=== PATIENT | female | born 1960 | race Caucasian/White ===

== ENCOUNTER → 2016-07-30 | Outpatient (REF) | payer MEDICARE ==
[~2016-07-30] MED LIST: ANTA500T PO; BUPR15TA PO; CIPR500T89 PO; DEPA1TAB3 PO; DEPA500T2 PO; FOLI1TAB2 PO; PROZ40CA PO; THIA100TA PO; TRAM50TA2 PO; TYLE325T5 PO
== END | disposition home or self-care (01) ==
LOC: M LAB REF 10:51
PROVIDERS: ATTEND Physician Assistant
DX: J02.9 Acute pharyngitis, unspecified (principal)

== ENCOUNTER → 2016-08-04 | Outpatient (CLI) | payer MEDICARE ==
[2016-08-04 11:37] LABS: MEAN CORPUSCULAR HEMOGLOBIN 31.7 pg (27.0-33.0); MEAN CORPUSCULAR HGB CONC 33.2 g/dl (32.0-36.5); MEAN CORPUSCULAR VOLUME 95.4 fl (80.0-96.0); RED CELL DISTRIBUTION WIDTH 13.4 % (11.5-14.5); WHITE BLOOD COUNT 7.7 K/mm3 (4.0-10.0)
[2016-08-04 12:41] LABS: ALBUMIN/GLOBULIN RATIO 1.08 (1.00-1.93); ALKALINE PHOSPHATASE 80 U/L (45-117); ALT/SGPT 26 U/L (12-78); ANION GAP 8 MEQ/L (8-16); AST/SGOT 17 U/L (15-37); BILIRUBIN,TOTAL 0.6 MG/DL (0.2-1.0); BLOOD UREA NITROGEN 13 MG/DL (7-18); CALCIUM LEVEL 8.9 MG/DL (8.5-10.1); CARBON DIOXIDE LEVEL 29 MEQ/L (21-32); CHLORIDE LEVEL 94 MEQ/L (98-107); CREATININE FOR GFR 0.76 MG/DL (0.55-1.02); GLOMERULAR FILTRATION RATE > 60.0 (>51); GLUCOSE, FASTING 80 MG/DL (70-105); POTASSIUM SERUM 4.6 MEQ/L (3.5-5.1); SODIUM LEVEL 131 MEQ/L (136-145); TOTAL PROTEIN 7.7 GM/DL (6.4-8.2)
== END | disposition home or self-care (01) ==
LOC: M LAB 11:11
PROVIDERS: ATTEND Physician Assistant
DX: F31.81 Bipolar II disorder (principal)

== ENCOUNTER 2017-07-08 13:49 | Emergency (ER) | payer MEDICARE ==
[2017-07-08] MEDS: LIDOCAINE 1% MDV 20ML VIAL SC (15:15)
[2017-07-08] MEDS: ADACEL/BOOSTRIX VACCINE (DIPHTH/PERTUSS/ACELL/TETANUS)0.5ML SYR (90715) IM (15:37)
[2017-07-08] MEDS: DERMABOND TOPICAL SKIN ADHESIVE TOP (16:20)
== END 2017-07-08 16:24 | disposition home or self-care (01) ==
LOC: M ED 13:49
DX: S61.411A Laceration without foreign body of right hand, initial encounter (principal); W25.XXXA Contact with sharp glass, initial encounter; Y92.009 Unspecified place in unspecified non-institutional (private) residence as the place of occurrence of the external cause; Y93.G1 Activity, food preparation and clean up; Y99.8 Other external cause status; G43.009 Migraine without aura, not intractable, without status migrainosus; M48.00 Spinal stenosis, site unspecified; M54.30 Sciatica, unspecified side; K21.9 Gastro-esophageal reflux disease without esophagitis; F41.9 Anxiety disorder, unspecified; F31.9 Bipolar disorder, unspecified; Z79.899 Other long term (current) drug therapy; Z88.5 Allergy status to narcotic agent; Z88.0 Allergy status to penicillin; Z88.1 Allergy status to other antibiotic agents; Z88.2 Allergy status to sulfonamides; Z87.891 Personal history of nicotine dependence
CPT/HCPCS: 90715

== ENCOUNTER → 2017-09-26 | Outpatient (CLI) | payer MEDICARE ==
[2017-09-26 13:37] LABS: BASO % 0.5 % (0.0-1.0); EOS # 0.1 10^3/uL (0.0-0.50); EOS % 0.9 % (0.0-3.0); HEMATOCRIT 38.1 % (36.0-47.0); HEMOGLOBIN 12.7 g/dl (12.0-16.0); IMMATURE GRANULOCYTE % 0.5 % (0-3.0); LYMPH # 1.5 10^3/uL (1.5-4.5); LYMPH % 22.1 % (24.0-44.0); MEAN CORPUSCULAR HGB CONC 33.3 g/dl (32.0-36.5); MONO # 0.6 10^3/uL (0.0-0.8); MONO % 8.6 % (0.0-5.0); NEUTROPHILS # 4.5 10^3/uL (1.8-7.7); NEUTROPHILS % 67.4 % (36.0-66.0); PLATELET COUNT, AUTOMATED 371 10^3/uL (150-450); RED BLOOD COUNT 3.85 10^6/uL (4.00-5.40); RED CELL DISTRIBUTION WIDTH 12.8 % (11.5-14.5); WHITE BLOOD COUNT 6.7 10^3/uL (4.0-10.0)
[2017-09-26 14:09] LABS: ALBUMIN 3.9 GM/DL (3.2-5.2); ALBUMIN/GLOBULIN RATIO 1.11 (1.00-1.93); ALKALINE PHOSPHATASE 86 U/L (45-117); ALT/SGPT 52 U/L (12-78); ANION GAP 4 MEQ/L (8-16); AST/SGOT 33 U/L (7-37); BILIRUBIN,TOTAL 0.5 MG/DL (0.2-1.0); BLOOD UREA NITROGEN 15 MG/DL (7-18); CALCIUM LEVEL 8.7 MG/DL (8.5-10.1); CARBON DIOXIDE LEVEL 28 MEQ/L (21-32); CHLORIDE LEVEL 102 MEQ/L (98-107); GLOMERULAR FILTRATION RATE > 60.0 (>51); GLUCOSE, FASTING 90 MG/DL (70-100); SODIUM LEVEL 134 MEQ/L (136-145); TOTAL PROTEIN 7.4 GM/DL (6.4-8.2)
[2017-09-26 14:13] LABS: POTASSIUM SERUM 5.2 MEQ/L (3.5-5.1)
== END ==
LOC: M SMT 09:53
DX: F39 Unspecified mood [affective] disorder (principal)
CPT/HCPCS: 84443

== ENCOUNTER 2018-02-13 12:18 | Emergency (ER) | payer MEDICARE ==
[2018-02-13 14:27] LABS: BASO # 0.1 10^3/uL (0.0-0.2); BASO % 0.6 % (0.0-1.0); EOS # 0.2 10^3/uL (0.0-0.50); EOS % 2.3 % (0.0-3.0); HEMATOCRIT 36.6 % (36.0-47.0); HEMOGLOBIN 12.4 g/dl (12.0-15.5); IMMATURE GRANULOCYTE % 0.2 % (0-3.0); LYMPH # 2.3 10^3/uL (1.5-4.5); MEAN CORPUSCULAR HEMOGLOBIN 33.3 pg (27.0-33.0); MEAN CORPUSCULAR HGB CONC 33.9 g/dl (32.0-36.5); MEAN CORPUSCULAR VOLUME 98.4 fl (80.0-96.0); MONO # 0.6 10^3/uL (0.0-0.8); MONO % 6.6 % (0.0-5.0); NEUTROPHILS # 5.3 10^3/uL (1.8-7.7); NEUTROPHILS % 63.3 % (36.0-66.0); PLATELET COUNT, AUTOMATED 353 10^3/uL (150-450); RED BLOOD COUNT 3.72 10^6/uL (4.00-5.40); RED CELL DISTRIBUTION WIDTH 13.2 % (11.5-14.5); WHITE BLOOD COUNT 8.3 10^3/uL (4.0-10.0)
[2018-02-13 14:31] LABS: ANION GAP 6 MEQ/L (8-16); BLOOD UREA NITROGEN 5 MG/DL (7-18); CALCIUM LEVEL 8.6 MG/DL (8.5-10.1); CARBON DIOXIDE LEVEL 29 MEQ/L (21-32); CHLORIDE LEVEL 105 MEQ/L (98-107); CPK CREATINE PHOSPHOKINASE 494 U/L (26-192); CREATININE FOR GFR 0.57 MG/DL (0.55-1.30); ETHYL ALCOHOL (ETHANOL) 0.003 % (0.000-0.010); FREE T4 0.82 NG/DL (0.76-1.46); GLOMERULAR FILTRATION RATE > 60.0 (>51); GLUCOSE, FASTING 88 MG/DL (70-100); MAGNESIUM LEVEL 2.1 MG/DL (1.8-2.4); POTASSIUM SERUM 3.6 MEQ/L (3.5-5.1); SODIUM LEVEL 140 MEQ/L (136-145); TROPONIN I < 0.02 NG/ML (< 0.10)
[2018-02-13 14:37] LABS: CK-MB VALUE MASS 7.6 NG/ML (<3.6); MB/CK RELATIVE INDEX 1.53 (< OR =4)
[2018-02-13] MEDS: NS 500 ML IV (14:38)
[2018-02-13] MEDS: KETOROLAC 30 MG/ML VIAL (J1885) IV (14:38)
[2018-02-14 15:04] LABS: BEDSIDE GLUCOSE 87 MG/DL (70-105)
== END 2018-02-13 16:43 | disposition home or self-care (01) ==
LOC: M ED 12:18
DX: S80.01XA Contusion of right knee, initial encounter (principal); S01.111A Laceration without foreign body of right eyelid and periocular area, initial encounter; M47.812 Spondylosis without myelopathy or radiculopathy, cervical region; W19.XXXA Unspecified fall, initial encounter; Y92.89 Other specified places as the place of occurrence of the external cause; R25.2 Cramp and spasm; M85.861 Other specified disorders of bone density and structure, right lower leg; F31.9 Bipolar disorder, unspecified; M19.90 Unspecified osteoarthritis, unspecified site; M79.7 Fibromyalgia; F17.210 Nicotine dependence, cigarettes, uncomplicated; Z88.5 Allergy status to narcotic agent; Z88.0 Allergy status to penicillin; Z88.2 Allergy status to sulfonamides; Z79.899 Other long term (current) drug therapy
CPT/HCPCS: J1885

== ENCOUNTER 2018-08-13 08:56 | Inpatient (IN) | payer MEDICARE ==
[~2018-08-13] VITALS: Ht 167.6 cm; Wt 78.7 kg
[~2018-08-13 08:56] MED LIST changes: +CIPR-249 PO; -CIPR500T89 PO; +FOLI1TAB11 PO; -FOLI1TAB2 PO; +NAPR-885 PO
[2018-08-13] MEDS ORDERED: NITROGLYCERIN 0.4 MG SUBL TABLET SL PRN (09:15)
[2018-08-13] MEDS ORDERED: ASPIRIN 81 MG CHEW TABLET PO ONE (09:15)
[2018-08-13] MEDS ORDERED: NS 1,000 ML IV ONE (09:15)
[2018-08-13 09:24] LABS: BASO # 0.1 10^3/uL (0.0-0.2); BASO % 0.6 % (0.0-1.0); EOS # 0.1 10^3/uL (0.0-0.50); EOS % 1.3 % (0.0-3.0); HEMATOCRIT 39.9 % (36.0-47.0); HEMOGLOBIN 13.5 g/dl (12.0-15.5); LYMPH % 19.9 % (24.0-44.0); MEAN CORPUSCULAR HEMOGLOBIN 33.8 pg (27.0-33.0); MEAN CORPUSCULAR HGB CONC 33.8 g/dl (32.0-36.5); MONO % 9.9 % (0.0-5.0); NEUTROPHILS # 6.7 10^3/uL (1.8-7.7); NEUTROPHILS % 67.7 % (36.0-66.0); PLATELET COUNT, AUTOMATED 304 10^3/uL (150-450); RED BLOOD COUNT 3.99 10^6/uL (4.00-5.40); WHITE BLOOD COUNT 9.8 10^3/uL (4.0-10.0)
--- NOTE | 2018-08-13 09:24 | REP ---
Portable chest x-ray: Single view. History: Chest pain. Comparison study: October 01, 2014. Findings: EKG monitoring electrodes overlie the chest. The lungs are symmetrically aerated and clear. Heart is not enlarged. The aorta is somewhat tortuous. Pulmonary vasculature is not increased. No significant bony abnormality is seen. Pleural angles are sharp. Impression: No active disease. Electronically Signed by Sherwin Arce MD 08/13/2018 09:16 A
[2018-08-13] MEDS ORDERED: MORPHINE 2 MG/ML 1ML SYRINGE (J2270) IV PRN (09:30)
[2018-08-13 09:35] LABS: INR 0.95; PROTHROMBIN TIME 12.8 SECONDS (12.1-14.4)
[2018-08-13 09:36] LABS: PARTIAL THROMBOPLASTIN TIME 26.9 SECONDS (25.4-37.6)
[2018-08-13] MEDS ORDERED: LORazepam 2 MG/ML VIAL (J2060) IV STA (09:58)
[2018-08-13 10:01] LABS: ALT/SGPT 71 U/L (12-78); BILIRUBIN,DIRECT 0.2 MG/DL (0.0-0.2); BILIRUBIN,TOTAL 0.5 MG/DL (0.2-1.0); BLOOD UREA NITROGEN 9 MG/DL (7-18); CARBON DIOXIDE LEVEL 30 MEQ/L (21-32); CHLORIDE LEVEL 97 MEQ/L (98-107); CPK CREATINE PHOSPHOKINASE 180 U/L (26-192); CREATININE FOR GFR 0.67 MG/DL (0.55-1.30); FREE T4 0.97 NG/DL (0.76-1.46); GLOMERULAR FILTRATION RATE > 60.0 (>51); GLUCOSE, FASTING 104 MG/DL (70-100); LIPASE 67 U/L (73-393); MB/CK RELATIVE INDEX 1.78 (< OR =4); NT-PRO BNP 45 PG/ML (<125); POTASSIUM SERUM 3.2 MEQ/L (3.5-5.1); SODIUM LEVEL 135 MEQ/L (136-145); TOTAL PROTEIN 7.5 GM/DL (6.4-8.2); TROPONIN I < 0.02 NG/ML (< 0.10)
[2018-08-13 10:05] LABS: HCG, SERUM QUALITATIVE NEGATIVE (NEGATIVE)
[2018-08-13 10:08] LABS: ACETAMINOPHEN LEVEL < 2.0 UG/ML (10.0-30.0); ETHYL ALCOHOL (ETHANOL) < 0.003 % (0.000-0.010); SALICYLATE LEVEL 6.9 MG/DL (5.0-30.0); VALPROIC ACID (DEPAKOTE) 31.2 UG/ML (50.0-100.0)
[2018-08-13 10:14] LABS: MAGNESIUM LEVEL 2.4 MG/DL (1.8-2.4)
[2018-08-13] MEDS ORDERED: POTASSIUM CHLORIDE 10 MEQ SR TABLET PO ONE (10:15)
[2018-08-13 15:37] LABS: CPK CREATINE PHOSPHOKINASE 130 U/L (26-192); MB/CK RELATIVE INDEX 2.15 (< OR =4); TROPONIN I < 0.02 NG/ML (< 0.10)
[2018-08-13] MEDS ORDERED: HALOPERIDOL 5 MG/ML VIAL (J1630) As Ordered ONE (15:48)
[2018-08-13] MEDS ORDERED: diphenhydrAMINE INJ 50MG/ML VIAL (J1200) As Ordered ONE (15:48)
[2018-08-13] MEDS ORDERED: LORazepam 2 MG/ML VIAL (J2060) IM ONE (16:00)
[2018-08-13] MEDS ORDERED: diphenhydrAMINE INJ 50MG/ML VIAL (J1200) IM ONE (16:00)
[2018-08-13] MEDS ORDERED: HALOPERIDOL 5 MG/ML VIAL (J1630) IM ONE (16:00)
[2018-08-13] MEDS ORDERED: NEOSPORIN OINT 0.9 GM PKT (FLOOR STOCK) As Ordered ONE (18:28)
--- NOTE | 2018-08-13 20:00 | ECGEPIP ---
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
[2018-08-13 21:06] LABS: AMPHETAMINES LEVEL URINE NEGATIVE (NEGATIVE); BARBITURATES URINE NEGATIVE (NEGATIVE); BENZODIAZEPINES URINE NEGATIVE (NEGATIVE); CANNABINOIDS URINE POSITIVE (NEGATIVE); COCAINE METABOLITE URINE NEGATIVE (NEGATIVE); METHADONE URINE NEGATIVE (NEGATIVE); OPIATES URINE POSITIVE (NEGATIVE); PHENCYCLIDINE URINE NEGATIVE (NEGATIVE)
[2018-08-13] MEDS ORDERED: chlorproMAZINE INJ 50MG/2ML AMP (J3230) IM ONE (23:30)
[2018-08-14] MEDS ORDERED: buPROPion **XL** TABLET 150MG (WELLBUTRIN XL) PO ONE (07:30)
[2018-08-14] MEDS ORDERED: DIVALPROEX 500MG *ER* TAB PO ONE (07:30)
[2018-08-14] MEDS ORDERED: FLUoxetine 20 MG CAP PO ONE (07:30)
[2018-08-14] MEDS ORDERED: ALEV220T26 PO (09:17)
[2018-08-14] MEDS ORDERED: MAALOX 30 ML SUSP *UDC PO PRN (11:15)
[2018-08-14] MEDS ORDERED: MOM 30ML SUSPENSION UDC PO PRN (11:15)
[2018-08-14 12:05] VITALS: BP 145/95
[2018-08-14 18:00] VITALS: BP 136/92
[2018-08-14] MEDS: traZODone 50 MG TAB PO PRN (23:02)
[2018-08-15] MEDS: ACETAMINOPHEN TAB 650MG DOSE (2X325MG) PO PRN ×2 (06:01→15:08)
[2018-08-15 06:34] VITALS: BP 144/84
--- NOTE | 2018-08-15 08:39 | ECGEPIP ---
Stationary ECG Study [facility] - ED Test Date: 2018-08-13 Pat Name: ISIDORO SCOTT Department: Room: - Gender: F Disability Attorney: JERSON : 1960 Requested By: Rhianna Lopez Order Number: [id number] Reading MD: Radha Blakely Measurements Intervals [place] Rate: 87 P: 31 TN: 179 QRS: 0 QRSD: 95 T: 53 QT: 377 QTc: 455 Interpretive Statements SINUS RHYTHM MINIMAL ST DEPRESSION PROLONGED QTC INCREASED RATE 08/13/18 Electronically Signed On 08-15-2018 8:38:38 EST by Radha Blakely
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
--- NOTE | 2018-08-15 10:02 | REP ---
CT Head without contrast HISTORY: Altered mental status COMPARISON: 02/13/2018 There is no intraparenchymal hemorrhage, acute infarct, mass or midline shift. The ventricular system and cortical sulci are dilated consistent with minimal volume loss. There is no extra cerebral collection. There is no fracture. The visualized sinuses are clear. IMPRESSION: Minimal volume loss. Electronically Signed by Navin Gaming MD 08/15/2018 09:53 A
--- NOTE | 2018-08-15 10:30 | REP ---
CT NECK WITH CONTRAST: HISTORY: Neck pain. A small 4 mm left laryngocele is present. The naso-, nica-, and hypopharynx, and subglottic trachea are normal in appearance. The salivary and thyroid glands are normal in size and density. Small lymph nodes, less than 1 cm in size are present in the internal jugular chains, posterior triangles, submandibular and submental areas. Minimal degenerative change is present in the cervical spine. The lung apices are clear. The visualized sinuses are clear. IMPRESSION: 1. Small 4 mm left laryngocele. 2. There is no neck mass or adenopathy. Electronically Signed by Navin Gaming MD 08/15/2018 10:34 A
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
[2018-08-15] MEDS: DIVALPROEX 500MG *ER* TAB PO SCH ×2 (13:16→20:18)
[2018-08-15] MEDS: PALIPERIDONE 3 MG ER TAB (INVEGA) PO SCH ×2 (13:17→20:18)
[2018-08-15 18:00] VITALS: BP 125/83
[2018-08-15] MEDS: traZODone 50 MG TAB PO PRN (20:18)
--- NOTE | 2018-08-15 21:44 | ECGEPIP ---
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
[2018-08-16] MEDS: ACETAMINOPHEN TAB 650MG DOSE (2X325MG) PO PRN ×2 (00:48→13:44)
[2018-08-16 06:23] VITALS: BP 123/70
[2018-08-16 07:04] LABS: HEMATOCRIT 38.5 % (36.0-47.0); HEMOGLOBIN 13.1 g/dl (12.0-15.5); MEAN CORPUSCULAR HEMOGLOBIN 33.2 pg (27.0-33.0); MEAN CORPUSCULAR VOLUME 97.7 fl (80.0-96.0); PLATELET COUNT, AUTOMATED 331 10^3/uL (150-450); RED BLOOD COUNT 3.94 10^6/uL (4.00-5.40); WHITE BLOOD COUNT 6.5 10^3/uL (4.0-10.0)
[2018-08-16 07:36] LABS: ALBUMIN 3.7 GM/DL (3.2-5.2); ALT/SGPT 80 U/L (12-78); BILIRUBIN,TOTAL 0.5 MG/DL (0.2-1.0); BLOOD UREA NITROGEN 10 MG/DL (7-18); CALCIUM LEVEL 9.1 MG/DL (8.5-10.1); CARBON DIOXIDE LEVEL 23 MEQ/L (21-32); CHLORIDE LEVEL 105 MEQ/L (98-107); CREATININE FOR GFR 0.56 MG/DL (0.55-1.30); FREE THYROXINE INDEX 2.6 % (1.3-4.8); GLOMERULAR FILTRATION RATE > 60.0 (>51); GLUCOSE, FASTING 125 MG/DL (70-100); POTASSIUM SERUM 4.4 MEQ/L (3.5-5.1); SODIUM LEVEL 136 MEQ/L (136-145); T UPTAKE 33 % (30-39); THYROXINE (T4) 7.8 UG/DL (4.5-12.0)
[2018-08-16] MEDS: PALIPERIDONE 3 MG ER TAB (INVEGA) PO SCH ×2 (09:31→20:59)
[2018-08-16] MEDS: DIVALPROEX 500MG *ER* TAB PO SCH ×2 (09:31→20:59)
--- NOTE | 2018-08-16 10:36 | MHIPNPDOC ---
[facility] Progress Note Progress Note DATE OF SERVICE: 08/16/18 HISTORY: Patient is a 58 -year-old , female, with no known psych history who presented to ED with complaint of chest pain. Pt during evaluation for CP very paranoid and abrasive to staff stating she was part of a "federal sting" and that she "works for [employer]." When staff attempting to take pt's vitals pt screamed at nurse and stated she was trying to kill her. She also stated 'HIPAA violation b/c the doctors can see them." Per ED when pt was in room alone with door cracked was talking back and forth to self changing voices for different people in full conversation. Attempted to see pt this am who demanding the her nursing assistants teacher be present as a "witness." Pt then stated that no one's doing anything right here and that we're treating her poorly from her experience in the ED to here on [facility] and that she's going to [place] one including myself and take our medical license b/c her family is full of mold changer with a lot of "legal pull in this town." Pt stating that she's smarter than everyone here b/c she has a 2yr degree from a [employer] for biochemistry and that she knows everyone at [place]. She is making multiple legal threats and is unable to participate in interview due to psychosis and grandiose, paranoid delusions. Her insight and judgement are extremely poor. Pt is a poor historian to history gathered from ED reports VITAL SIGNS: See below. NEW TEST RESULTS: See below. CURRENT MEDICATIONS: See below. MENTAL STATUS EXAMINATION: General Appearance: unkempt, appears stated age, hospital scrubs/clothing Build: overweight Demeanor: hostile (verbally making legal threats), mistrustful, preoccupied, guarded Eye Contact: average Activity: agitated, anxious, less hostile (verbally making legal threats) Behavior: uncooperative, resistant, agitated Speech: rapid, pressured, normal volume Mood: anxious, less angry, irritable Mood "I'm going to [place] you all" Affect: inappropriate, labile, anxious, hostile, disorganized Thought Process: tangential, associative, flight of ideas, racing, derailment Thought Content (Delusions): grandiose, bizarre, paranoia, delusions Thought Content (Other): preoccupied, obsessional, guarded, ideas of reference, internal-stimuli, appears paranoid Thought Content (Aggressive): none reported Perception (Hallucinations): auditory (talking to self back and forth changing voices for different people in full conversation) Perception (Other): none reported Cognition (Impairment of): memory, attention/concentration, ability to abstract Cognition(Intelligence Est.): borderline Oriented: Awake, Alert, Oriented times three Insight: poor Judgment: Poor Psychosis: Associations, Abstract Thinking, Psychotic Perceptions DIAGNOSES: bipolar 1 d/o mre rosa with psychosis (per [facility] records) ASSESSMENT:Attempts to see pt today but refused to come to my office as she's on the phone with "the state" telling them that laws are being broken her and she's being held against her will for no reason. She continues to be manic, grandiose, hostile, psychotic, paranoid, and delusional. She is compliant on her medication though so will monitor for improvement in symptoms. MANAGEMENT PLAN: continue current plan. Per [facility] records pt has one daughter and a son 15yrs ago. Has found prozac, effexor, and klonopin beneficial in the past for depression. Depakote beneficial for bipolar d/o Medications: depakote er bid invega 3mg bid ativan 2mg q6hr prn anxiety/agitation zyprexa zydis 5mg q6hr prn anxiety/agitation. TIME SPENT: 30 minutes. Vital Signs Vital Signs Date Time Temp Pulse Resp B/P (MAP) Pulse Ox O2 Delivery O2 Flow Rate FiO2 08/16/18 06:23 97.8 86 16 123/70 (87) 08/15/18 07:51 Room Air 08/14/18 12:05 97 Laboratory Data 24H Labs Laboratory Tests 2 08/16/18 06:44: Nucleated Red Blood Cells % (auto) 0.0, Anion Gap 8, Glomerular Filtration Rate > 60.0, Blood Urea Nitrogen 10, Creatinine 0.56, Sodium Level 136, Potassium Level 4.4#, Chloride Level 105, Carbon Dioxide Level 23, Calcium Level 9.1, Aspartate Amino Transf (AST/SGOT) 62H, Alanine Aminotransferase (ALT/SGPT) 80H, Alkaline Phosphatase 67, Total Bilirubin 0.5, Total Protein 7.0, Albumin 3.7, Albumin/Globulin Ratio 1.12, Thyroid Stimulating Hormone (TSH) 11.300H, Free Thyroxine Index 2.6, Thyroxine (T4) 7.8, Triiodothyronine (T3) Uptake 33 CBC/BMP Laboratory Tests 08/16/18 06:44 Red Blood Count 3.94 L, Mean Corpuscular Volume 97.7 H, Mean Corpuscular Hemoglobin 33.2 H, Mean Corpuscular Hemoglobin Concent 34.0, Red Cell Distribution Width 12.3, Calcium Level 9.1, Aspartate Amino Transf (AST/SGOT) 62 H, Alanine Aminotransferase (ALT/SGPT) 80 H, Alkaline Phosphatase 67, Total Bilirubin 0.5, Total Protein 7.0, Albumin 3.7 Current Medications Current Medications Acetaminophen (Tylenol Tab) 650 mg Q6HP PRN PO HEADACHE or DISCOMFORT Last administered on 08/16/18at 00:48; Start 08/14/18 at 11:15 Al Hydrox/Mg Hydrox/Simethicone (Mylanta) 30 ml Q4HP PRN PO HEARTBURN/INDIGESTION; Start 08/14/18 at 11:15 Divalproex Sodium (Depakote Er) 500 mg BID PO Last administered on 08/16/18at 09:31; Start 08/15/18 at 09:00 Home Med (Med Rec Complete!) ASDIRECTED XX ; Start 08/14/18 at 09:30; Stop 08/14/18 at 09:30; Status DC Lorazepam (Ativan) 1 mg STAT STAT IV Last administered on 08/13/18at 10:03; Start 08/13/18 at 09:58; Stop 08/13/18 at 09:59; Status DC Lorazepam (Ativan) 2 mg Q6HP PRN PO ANXIETY/AGITATION; Start 08/15/18 at 12:15 Magnesium Hydroxide (Milk Of Magnesia) 30 ml DAILYPRN PRN PO CONSTIPATION; Start 08/14/18 at 11:15 Morphine Sulfate (Morphine Sulfate Inj) 2 mg Q30M PRN IV MODERATE PAIN (PS 5-7) Last administered on 08/13/18at 09:25; Start 08/13/18 at 09:30 Nitroglycerin (Nitrostat (1/ 150)) 0.4 mg Q5MP PRN SL CHEST PAIN; Start 08/13/18 at 09:15 Olanzapine (ZyPREXA) 5 mg Q6HP PRN PO ANXIETY/AGITATION; Start 08/14/18 at 11:30 Paliperidone (Invega) 3 mg QAM PO Last administered on 08/16/18at 09:31; Start 08/15/18 at 09:00 Paliperidone (Invega) 3 mg QHS PO Last administered on 08/15/18at 20:18; Start 08/15/18 at 21:00 Trazodone HCl (Desyrel) 50 mg QHSP PRN PO INSOMNIA Last administered on 08/15/18at 20:18; Start 08/14/18 at 11:15 Allergies Coded Allergies: Penicillins (Unverified Allergy, Severe, ANAPHYLACTIC REACTION, 02/23/14) Sulfa Antibiotics (Unverified Adverse Reaction, Intermediate, TINNITUS, 02/23/14) Codeine (Unverified Adverse Reaction, Unknown, VOMIT, 04/11/16) SHERMAN YU DO Aug 16, 2018 10:36 am
[2018-08-16] MEDS: NICOTINE 21MG/24HR 1 EA TRANSDERMAL TD PRN (14:49)
[2018-08-16 18:00] VITALS: BP 107/79
[2018-08-16] MEDS: traZODone 50 MG TAB PO PRN (20:59)
[2018-08-17] MEDS: ACETAMINOPHEN TAB 650MG DOSE (2X325MG) PO PRN ×2 (03:41→18:03)
[2018-08-17 06:30] VITALS: BP 120/83
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
[2018-08-17] MEDS: DIVALPROEX 500MG *ER* TAB PO SCH ×2 (08:57→21:01)
[2018-08-17] MEDS: PALIPERIDONE 3 MG ER TAB (INVEGA) PO SCH ×2 (08:58→21:01)
[2018-08-17] MEDS: LEVOTHYROXINE 25MCG TABLET (0.025MG) PO SCH (08:58)
[2018-08-17 09:16] LABS: ALBUMIN 3.8 GM/DL (3.2-5.2); ALT/SGPT 75 U/L (12-78); BILIRUBIN,TOTAL 0.5 MG/DL (0.2-1.0); BLOOD UREA NITROGEN 10 MG/DL (7-18); CALCIUM LEVEL 9.1 MG/DL (8.5-10.1); CARBON DIOXIDE LEVEL 27 MEQ/L (21-32); CHLORIDE LEVEL 102 MEQ/L (98-107); CREATININE FOR GFR 0.68 MG/DL (0.55-1.30); GLOMERULAR FILTRATION RATE > 60.0 (>51); GLUCOSE, FASTING 134 MG/DL (70-100); POTASSIUM SERUM 4.4 MEQ/L (3.5-5.1); SODIUM LEVEL 135 MEQ/L (136-145)
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
[2018-08-17] MEDS: NICOTINE 21MG/24HR 1 EA TRANSDERMAL TD PRN (14:49)
[2018-08-17 18:00] VITALS: BP 112/75
[2018-08-17] MEDS: traZODone 50 MG TAB PO PRN (21:01)
[2018-08-17] MEDS: CEPACOL LOZENGE PO PRN (21:03)
[2018-08-18] MEDS: ACETAMINOPHEN TAB 650MG DOSE (2X325MG) PO PRN (02:43)
[2018-08-18] MEDS: LEVOTHYROXINE 25MCG TABLET (0.025MG) PO SCH (05:57)
[2018-08-18 06:00] VITALS: BP 135/86
[2018-08-18] MEDS: DIVALPROEX 500MG *ER* TAB PO SCH ×2 (08:49→20:23)
[2018-08-18] MEDS: PALIPERIDONE 3 MG ER TAB (INVEGA) PO SCH ×2 (08:49→20:22)
[2018-08-18] MEDS: CEPACOL LOZENGE PO PRN ×2 (08:50→14:40)
[2018-08-18] MEDS: NICOTINE 21MG/24HR 1 EA TRANSDERMAL TD PRN (14:42)
[2018-08-18 18:00] VITALS: BP 113/59
[2018-08-18] MEDS: traZODone 50 MG TAB PO PRN (20:22)
[2018-08-19 06:00] VITALS: BP 114/66
[2018-08-19] MEDS: LEVOTHYROXINE 25MCG TABLET (0.025MG) PO SCH (06:36)
[2018-08-19] MEDS: PALIPERIDONE 3 MG ER TAB (INVEGA) PO SCH ×2 (08:59→20:34)
[2018-08-19] MEDS: DIVALPROEX 500MG *ER* TAB PO SCH ×2 (08:59→20:34)
[2018-08-19] MEDS: CEPACOL LOZENGE PO PRN ×2 (15:50→21:33)
[2018-08-19] MEDS: NICOTINE 21MG/24HR 1 EA TRANSDERMAL TD PRN (15:51)
--- NOTE | 2018-08-19 17:09 | MHIPN ---
DATE: 08/18/2018 CHIEF COMPLAINT: Says feels good. SUBJECTIVE: Is seen for followup in the presence of staff. Says feels good and is puzzled as to why she is here. Says was admitted through the emergency room. Says is doing well and that her moods are good. Acknowledges sleep is somewhat diminished. 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 MENTAL STATUS EXAMINATION: Neat, cooperative. There is no agitation. Speech is somewhat overly productive. Affect is broad. Denies any thoughts of harming herself or anyone else. Appears somewhat grandiose. Does not appear internally preoccupied. She is alert and oriented. Judgment and insight are questionable. ASSESSMENT: 1. Bipolar disorder, current episode manic with psychotic features. PLAN: Continue current care, observations. She is on paliperidone 6 mg daily in divided doses. Depakote 1000 mg and these may need to be titrated upwards. Further recommendations will be made depending on the clinical picture. VITAL SIGNS: These are as listed. Blood pressure 135/86, pulse 92, temperature 97.8.
[2018-08-19 18:00] VITALS: BP 102/68
[2018-08-19] MEDS: traZODone 50 MG TAB PO PRN (20:35)
[2018-08-20] MEDS: LEVOTHYROXINE 25MCG TABLET (0.025MG) PO SCH (05:51)
[2018-08-20 06:21] VITALS: BP 134/65
--- NOTE | 2018-08-20 08:33 | REP ---
RIGHT UPPER QUADRANT ULTRASOUND: Real-time sonographic evaluation of right upper quadrant performed. Gallbladder demonstrates no evidence of intraluminal sludge or calculi, wall thickening, or pericholecystic fluid. There is no intrahepatic or extrahepatic biliary dilatation, common bile duct measuring 3 mm. Liver and pancreas demonstrate homogeneous echotexture with no gross mass. Right kidney demonstrates no hydronephrosis with normal size 9.6 cm in length. IMPRESSION: Negative right upper quadrant ultrasound. Electronically Signed by Freddie Zepeda MD 08/20/2018 10:35 P
--- NOTE | 2018-08-20 09:06 | MHIPNPDOC ---
[facility] Progress Note Progress Note DATE OF SERVICE: 08/20/18 HISTORY: Patient is a 58 -year-old , female, with no known psych history who presented to ED with complaint of chest pain. Pt during evaluation for CP very paranoid and abrasive to staff stating she was part of a "federal sting" and that she "works for [employer]." When staff attempting to take pt's vitals pt screamed at nurse and stated she was trying to kill her. She also stated 'HIPAA violation b/c the doctors can see them." Per ED when pt was in room alone with door cracked was talking back and forth to self changing voices for different people in full conversation. 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 She is making multiple legal threats and is unable to participate in interview due to psychosis and grandiose, paranoid delusions. Her insight and judgement are extremely poor. Pt is a poor historian to history gathered from ED reports VITAL SIGNS: See below. NEW TEST RESULTS: See below. CURRENT MEDICATIONS: See below. MENTAL STATUS EXAMINATION: General Appearance: unkempt, appears stated age, hospital scrubs/clothing Build: overweight Demeanor: more calm and cooperative, preoccupied by grandiose delusions, guarded Eye Contact: average Activity: more calm and cooperative Behavior: cooperative, pleasant Speech: improved rapid, pressured, normal volume Mood: no longer anxious and hostile. She is less manic Mood "I had a good weekend." Affect: appropriate, less disorganized. no longer labile, less anxious, no long er hostile Thought Process: tangential, associative, flight of ideas, derailment. improved racing Thought Content (Delusions): grandiose, bizarre, delusions. less paranoid Thought Content (Other): preoccupied, obsessional, ideas of reference, internal-stimuli, appears less paranoid Thought Content (Aggressive): none reported Perception (Hallucinations): auditory (talking to self back and forth changing voices for different people in full conversation) Perception (Other): none reported Cognition (Impairment of): memory, attention/concentration, ability to abstract Cognition(Intelligence Est.): borderline Oriented: Awake, Alert, Oriented times three Insight: poor Judgment: Poor Psychosis: Associations, Abstract Thinking, Psychotic Perceptions DIAGNOSES: bipolar 1 d/o mre rosa with psychosis (per [facility] records) ASSESSMENT:Seen pt in milieu today stating she had a good weekend and is gathering everyone on the unit for "fund raising". States she's getting ready for the polar plunge Aug 29 and to take the plunge into freezing water for fund raising. States she's planning fund raising events with peer patients to hold on the unit. 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 She continues to have grandiose delusions and no insight into them. She continues to be grandiose with increased goal direction. She is no longer hostile. She remains psychotic, paranoid, and delusional. She is much more calm after receiving the nicotine patch she asked for. She is compliant on her medication and will monitor for improvement in symptoms. MANAGEMENT PLAN: continue current plan. Per [facility] records pt has one daughter and a son 15yrs ago. Has found prozac, effexor, and klonopin beneficial in the past for depression. Depakote beneficial for bipolar d/o. Increase invega 6mg bid as appears beneficial. Depakote level. Medications: depakote er 500mg bid invega 6mg bid ativan 2mg q6hr prn anxiety/agitation zyprexa zydis 5mg q6hr prn anxiety/agitation. TIME SPENT: 30 minutes. Vital Signs Vital Signs Date Time Temp Pulse Resp B/P (MAP) Pulse Ox O2 Delivery O2 Flow Rate FiO2 08/20/18 06:21 97.0 110 20 134/65 (88) 08/15/18 07:51 Room Air 08/14/18 12:05 97 Current Medications Current Medications Acetaminophen (Tylenol Tab) 650 mg Q6HP PRN PO HEADACHE or DISCOMFORT Last administered on 08/18/18 02:43; Start 08/14/18 at 11:15 Al Hydrox/Mg Hydrox/Simethicone (Mylanta) 30 ml Q4HP PRN PO HEARTBURN/INDIGESTION; Start 08/14/18 at 11:15 Cetylpyridinium Chloride (Cepacol) 1 rosa maria Q4HP PRN PO COUGH Last administered on 08/19/18 21:33; Start 08/17/18 at 21:00 Divalproex Sodium (Depakote Er) 500 mg BID PO Last administered on 08/19/18 20:34; Start 08/15/18 at 09:00 Home Med (Med Rec Complete!) ASDIRECTED XX ; Start 08/14/18 at 09:30; Stop 08/14/18 at 09:30; Status DC Levothyroxine Sodium (Synthroid) 25 mcg DAILY@06 PO Last administered on 08/20/18at 05:51; Start 08/17/18 at 06:00 Lorazepam (Ativan) 1 mg STAT STAT IV Last administered on 08/13/18at 10:03; Start 08/13/18 at 09:58; Stop 08/13/18 at 09:59; Status DC Lorazepam (Ativan) 2 mg Q6HP PRN PO ANXIETY/AGITATION; Start 08/15/18 at 12:15 Magnesium Hydroxide (Milk Of Magnesia) 30 ml DAILYPRN PRN PO CONSTIPATION; Start 08/14/18 at 11:15 Morphine Sulfate (Morphine Sulfate Inj) 2 mg Q30M PRN IV MODERATE PAIN (PS 5-7) Last administered on 08/13/18 09:25; Start 08/13/18 at 09:30; Stop 08/19/18 at 09:30; Status DC Nicotine (Nicoderm Cq 21mg) 1 patch DAILYPRN PRN TD NICOTINE WITHDRAWAL Last ad ministered on 08/19/18 15:51; Start 08/16/18 at 13:45 Nitroglycerin (Nitrostat (1/ 150)) 0.4 mg Q5MP PRN SL CHEST PAIN; Start 08/13/18 at 09:15; Stop 08/19/18 at 09:31; Status DC Olanzapine (ZyPREXA) 5 mg Q6HP PRN PO ANXIETY/AGITATION; Start 08/14/18 at 11:30 Paliperidone (Invega) 3 mg QAM PO Last administered on 08/19/18 08:59; Start 08/15/18 at 09:00 Paliperidone (Invega) 3 mg QHS PO Last administered on 08/19/18at 20:34; Start 08/15/18 at 21:00 Trazodone HCl (Desyrel) 50 mg QHSP PRN PO INSOMNIA Last administered on 08/19/18 20:35; Start 08/14/18 at 11:15 Allergies Coded Allergies: Penicillins (Unverified Allergy, Severe, ANAPHYLACTIC REACTION, 02/23/14) Sulfa Antibiotics (Unverified Adverse Reaction, Intermediate, TINNITUS, 02/23/14) Codeine (Unverified Adverse Reaction, Unknown, VOMIT, 04/11/16) SHERMAN YU DO Aug 20, 2018 9:06 am
[2018-08-20] MEDS: DIVALPROEX 500MG *ER* TAB PO SCH (09:15)
[2018-08-20] MEDS: CEPACOL LOZENGE PO PRN ×2 (09:15→17:58)
[2018-08-20] MEDS: PALIPERIDONE 6 MG ER TAB (INVEGA) PO SCH (09:15)
[2018-08-20] MEDS: LORazepam 2 MG TAB PO PRN (15:17)
[2018-08-20 18:00] VITALS: BP 107/80
[2018-08-20] MEDS: NICOTINE 21MG/24HR 1 EA TRANSDERMAL TD PRN (18:00)
[2018-08-21] MEDS: DIVALPROEX 500MG *ER* TAB PO SCH ×3 (03:06→20:31)
[2018-08-21] MEDS: PALIPERIDONE 6 MG ER TAB (INVEGA) PO SCH (03:06)
[2018-08-21] MEDS: LEVOTHYROXINE 25MCG TABLET (0.025MG) PO SCH (05:43)
[2018-08-21] MEDS: CEPACOL LOZENGE PO PRN ×2 (05:52→19:05)
[2018-08-21 06:00] VITALS: BP 105/72
--- NOTE | 2018-08-21 09:40 | MHIPNPDOC ---
[facility] Progress Note Progress Note DATE OF SERVICE: 08/21/18 HISTORY: Patient is a 58 -year-old , female, with no known psych history who presented to ED with complaint of chest pain. Pt during evaluation for CP very paranoid and abrasive to staff stating she was part of a "federal sting" and that she "works for [employer]." When staff attempting to take pt's vitals pt screamed at nurse and stated she was trying to kill her. She also stated 'HIPAA violation b/c the doctors can see them." Per ED when pt was in room alone with door cracked was talking back and forth to self changing voices for different people in full conversation. Attempted to see pt this am who demanding the her state tested nursing assistant be present as a "witness." Pt then stated that no one's doing anything right here and that we're treating her poorly from her experience in the ED to here on [facility] and that she's going to [place] every one including myself and take our medical license b/c her family is full of wool mixer with a lot of "legal pull in this town." Pt stating that she's smarter than everyone here b/c she has a 2yr degree from a [employer] college for biochemistry and that she knows everyone at [employer]. She is making multiple legal threats and is unable to participate in interview due to psychosis and grandiose, paranoid delusions. Her insight and judgement are extremely poor. Pt is a poor historian to history gathered from ED reports VITAL SIGNS: See below. NEW TEST RESULTS: depakote level 62.6 low therapeutic CURRENT MEDICATIONS: See below. MENTAL STATUS EXAMINATION: General Appearance: clean, appears stated age, hospital scrubs/clothing Build: overweight Demeanor: more calm and cooperative, less preoccupied by grandiose delusions, no longer guarded Eye Contact: average Activity: more calm and cooperative Behavior: cooperative, pleasant Speech: improved rapid, pressured, normal volume Mood: no longer anxious and hostile. She is less manic Mood "I'm ok." Affect: appropriate, less disorganized. no longer labile, less anxious, no longer hostile Thought Process: improving associative, flight of ideas, derailment. improved racing. she is no longer tangential Thought Content (Delusions): improving grandiose, bizarre, delusions. less paranoid Thought Content (Other): improving preoccupation, obsessional, ideas of reference, denies internal-stimuli, appears less paranoid Thought Content (Aggressive): none reported Perception (Hallucinations): denies auditory (no longer talking to self back and forth changing voices for different people in full conversation) Perception (Other): none reported Cognition (Impairment of): improving memory, attention/concentration, ability to abstract Cognition(Intelligence Est.): borderline Oriented: Awake, Alert, Oriented times three Insight: poor Judgment: Poor Psychosis: improving Associations, Abstract Thinking, Psychotic Perceptions DIAGNOSES: bipolar 1 d/o mre rosa with psychosis (per [facility] records) ASSESSMENT:Seen pt in office today stating she wants to talk about her health records. States she's worried about her liver enzymes with invega and reassured that invega is metabolized by the kidney which she was happy to hear. States higher dose is causing fatigue and would like oral dose decreased to improve. Discussed start of invega sustenna and stated she would like to be on it, agreeable to taking it today for med compliance. Risks/benefits discussed. Expressed concern about her thyroid as the TSH numbers are high and would very much appreciate thyroid profile to evaluate. 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 She continues to have grandiose delusions although less and no insight into them. She continues have increased goal direction although less bizarre. She is no longer hostile. She has improving psychosis, paranoia, and delusions. She is much more calm after receiving the nicotine patch she asked for. She is compliant on her medication and will monitor for improvement in symptoms. MANAGEMENT PLAN: continue current plan. Per [facility] records pt has one daughter and a son 15yrs ago. Has found prozac, effexor, and klonopin beneficial in the past for depression. Depakote beneficial for bipolar d/o. Increase invega 6mg bid as appears beneficial. Depakote level. Medications: invega sustenna 234mg im today invega sustenna 156mg im Monday depakote er 500mg bid invega 3mg bid ativan 2mg q6hr prn anxiety/agitation zyprexa zydis 5mg q6hr prn anxiety/agitation. TIME SPENT: 30 minutes. Vital Signs Vital Signs Date Time Temp Pulse Resp B/P (MAP) Pulse Ox O2 Delivery O2 Flow Rate FiO2 08/21/18 06:00 98.0 92 14 105/72 (83) 08/15/18 07:51 Room Air Current Medications Current Medications Acetaminophen (Tylenol Tab) 650 mg Q6HP PRN PO HEADACHE or DISCOMFORT Last administered on 08/18/18 02:43; Start 08/14/18 at 11:15 Al Hydrox/Mg Hydrox/Simethicone (Mylanta) 30 ml Q4HP PRN PO HEARTBURN/INDIGESTION; Start 08/14/18 at 11:15 Cetylpyridinium Chloride (Cepacol) 1 rosa maria Q4HP PRN PO COUGH Last administered on 08/21/18 05:52; Start 08/17/18 at 21:00 Divalproex Sodium (Depakote Er) 500 mg BID PO Last administered on 08/20/18 09:15; Start 08/15/18 at 09:00 Home Med (Med Rec Complete!) ASDIRECTED XX ; Start 08/14/18 at 09:30; Stop 08/14/18 at 09:30; Status DC Levothyroxine Sodium (Synthroid) 25 mcg DAILY@06 PO Last administered on 08/21/18 05:43; Start 08/17/18 at 06:00 Lorazepam (Ativan) 1 mg STAT STAT IV Last administered on 08/13/18 10:03; Start 08/13/18 at 09:58; Stop 08/13/18 at 09:59; Status DC Lorazepam (Ativan) 2 mg Q6HP PRN PO ANXIETY/AGITATION Last administered on 08/20/18 15:17; Start 08/15/18 at 12:15 Magnesium Hydroxide (Milk Of Magnesia) 30 ml DAILYPRN PRN PO CONSTIPATION; Start 08/14/18 at 11:15 Morphine Sulfate (Morphine Sulfate Inj) 2 mg Q30M PRN IV MODERATE PAIN (PS 5-7) Last administered on 08/13/18 09:25; Start 08/13/18 at 09:30; Stop 08/19/18 at 09:30; Status DC Nicotine (Nicoderm Cq 21mg) 1 patch DAILYPRN PRN TD NICOTINE WITHDRAWAL Last administered on 08/20/18at 18:00; Start 08/16/18 at 13:45 Nitroglycerin (Nitrostat (1/ 150)) 0.4 mg Q5MP PRN SL CHEST PAIN; Start 08/13/18 at 09:15; Stop 08/19/18 at 09:31; Status DC Olanzapine (ZyPREXA) 5 mg Q6HP PRN PO ANXIETY/AGITATION; Start 08/14/18 at 11:30 Paliperidone (Invega) 3 mg QAM PO Last administered on 08/19/18at 08:59; Start 08/15/18 at 09:00; Stop 08/20/18 at 09:04; Status DC Paliperidone (Invega) 3 mg QHS PO Last administered on 08/19/18at 20:34; Start 08/15/18 at 21:00; Stop 08/20/18 at 09:04; Status DC Paliperidone (Invega) 6 mg BID PO Last administered on 08/20/18at 09:15; Start 08/20/18 at 09:00 Trazodone HCl (Desyrel) 50 mg QHSP PRN PO INSOMNIA Last administered on 08/19/18at 20:35; Start 08/14/18 at 11:15 Allergies Coded Allergies: Penicillins (Unverified Allergy, Severe, ANAPHYLACTIC REACTION, 02/23/14) Sulfa Antibiotics (Unverified Adverse Reaction, Intermediate, TINNITUS, 02/23/14) Codeine (Unverified Adverse Reaction, Unknown, VOMIT, 04/11/16) SHERMAN YU DO Aug 21, 2018 09:40
[2018-08-21] MEDS: LORazepam 2 MG TAB PO PRN ×2 (09:58→20:31)
[2018-08-21] MEDS: PALIPERIDONE 3 MG ER TAB (INVEGA) PO SCH ×2 (10:12→20:31)
[2018-08-21] MEDS ORDERED: PALIPERIDONE PALMITATE 234 MG/1.5 ML INJ (INVEGA SUSTENNA)(J2426) IM ONE (12:00)
[2018-08-21 12:06] LABS: FREE THYROXINE INDEX 2.4 % (1.3-4.8); THYROID STIMULATING HORMONE 6.41 uIU/ML (0.358-3.740); THYROXINE (T4) 7.8 UG/DL (4.5-12.0)
[2018-08-21 18:00] VITALS: BP 114/78
[2018-08-21] MEDS: NICOTINE 21MG/24HR 1 EA TRANSDERMAL TD PRN (19:05)
[2018-08-22] MEDS: LEVOTHYROXINE 25MCG TABLET (0.025MG) PO SCH (05:49)
[2018-08-22 06:41] VITALS: BP 122/78
[2018-08-22] MEDS: DIVALPROEX 500MG *ER* TAB PO SCH ×2 (09:05→19:59)
[2018-08-22] MEDS: PALIPERIDONE 3 MG ER TAB (INVEGA) PO SCH ×2 (09:05→19:58)
[2018-08-22] MEDS: CEPACOL LOZENGE PO PRN ×2 (09:06→13:12)
--- NOTE | 2018-08-22 10:11 | MHIPNPDOC ---
[facility] Progress Note Progress Note DATE OF SERVICE: 08/22/18 HISTORY: Patient is a 58 -year-old , female, with no known psych history who presented to ED with complaint of chest pain. Pt during evaluation for CP very paranoid and abrasive to staff stating she was part of a "federal sting" and that she "works for [email or web address]." When staff attempting to take pt's vitals pt screamed at nurse and stated she was trying to kill her. She also stated 'HIPAA violation b/c the doctors can see them." Per ED when pt was in room alone with door cracked was talking back and forth to self changing voices for different people in full conversation. Attempted to see pt this am who demanding the her nursing associate be present as a "witness." Pt then stated that no one's doing anything right here and that we're treating her poorly from her experience in the ED to here on [facility] and that she's going to [place] every one including myself and take our medical license b/c her family is full of list of first job ideas with a lot of "legal pull in this town." Pt stating that she's smarter than everyone here b/c she has a 2yr degree from a [employer] college for biochemistry and that she knows everyone at [place]. She is making multiple legal threats and is unable to participate in interview due to psychosis and grandiose, paranoid delusions. Her insight and judgement are extremely poor. Pt is a poor historian to history gathered from ED reports VITAL SIGNS: See below. NEW TEST RESULTS: depakote level 62.6 low therapeutic CURRENT MEDICATIONS: See below. MENTAL STATUS EXAMINATION: General Appearance: clean, appears stated age, hospital scrubs/clothing Build: overweight Demeanor: more calm and cooperative, less preoccupied by grandiose delusions, no longer guarded Eye Contact: average Activity: more calm and cooperative Behavior: cooperative, pleasant Speech: reg rate/rhythm, normal volume Mood: no longer anxious and hostile. She is less manic Mood "I'm ok." Affect: appropriate, less disorganized. no longer labile, less anxious, no longer hostile Thought Process: improving associative, flight of ideas, derailment. improved racing. she is no longer tangential Thought Content (Delusions): improving bizarre, delusions. less paranoid, grandiose thoughts at baseline per history Thought Content (Other): improving preoccupation, obsessional, ideas of reference, denies internal-stimuli, appears less paranoid Thought Content (Aggressive): none reported Perception (Hallucinations): denies auditory (no longer talking to self back and forth changing voices for different people in full conversation) Perception (Other): none reported Cognition (Impairment of): improving memory, attention/concentration, ability to abstract Cognition(Intelligence Est.): borderline Oriented: Awake, Alert, Oriented times three Insight: poor Judgment: Poor Psychosis: improving Associations, Abstract Thinking, Psychotic Perceptions DIAGNOSES: bipolar 1 d/o mre rosa with psychosis (per [facility] records) ASSESSMENT:Seen pt in office today stating she took her invega sustenna im yesterday, tolerated it well and feels it's beneficial. States she found out her mother who's 81 is in the hospital in [facility] and is anxious and worried about her mother. 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 She remains at baseline to be grandiose at times which per nursing staff that know her well from here and outside hospital ([facility]) state she is at baseline. S Continues to start she consults for "[employer]." She is much more pleasant and polite no longer threatening to [place] everyone on the unit. She continues to have grandiose delusions although less and no insight into them, most likely baseline as stated above. She continues have increased goal direction although less bizarre. She is no longer hostile. She has improving psychosis, paranoia, and delusions. She is much more calm after receiving the nicotine patch she asked for. She is compliant on her medication and will monitor for improvement in symptoms. MANAGEMENT PLAN: continue current plan. Per [facility] records pt has one daughter and a son 15yrs ago. Has found prozac, effexor, and klonopin beneficial in the past for depression. Depakote beneficial for bipolar d/o. Increase invega 6mg bid as appears beneficial. Depakote level. Medications: invega sustenna 234mg im today invega sustenna 156mg im Monday depakote er 500mg bid invega 3mg bid ativan 2mg q6hr prn anxiety/agitation zyprexa zydis 5mg q6hr prn anxiety/agitation. TIME SPENT: 30 minutes. Vital Signs Vital Signs Date Time Temp Pulse Resp B/P (MAP) Pulse Ox O2 Delivery O2 Flow Rate FiO2 08/22/18 06:41 97.8 97 16 122/78 (93) Laboratory Data 24H Labs Laboratory Tests 2 08/21/18 11:02: Thyroid Stimulating Hormone (TSH) 6.410H, Free Thyroxine Index 2.4, Thyroxine (T4) 7.8, Triiodothyronine (T3) Uptake 31 Current Medications Current Medications Acetaminophen (Tylenol Tab) 650 mg Q6HP PRN PO HEADACHE or DISCOMFORT Last administered on 08/18/18 02:43; Start 08/14/18 at 11:15 Al Hydrox/Mg Hydrox/Simethicone (Mylanta) 30 ml Q4HP PRN PO HEARTBURN/INDIGESTION; Start 08/14/18 at 11:15 Cetylpyridinium Chloride (Cepacol) 1 rosa maria Q4HP PRN PO COUGH Last administered on 08/22/18 09:06; Start 08/17/18 at 21:00 Divalproex Sodium (Depakote Er) 500 mg BID PO Last administered on 08/22/18at 09:05; Start 08/15/18 at 09:00 Home Med (Med Rec Complete!) ASDIRECTED XX ; Start 08/14/18 at 09:30; Stop 08/14/18 at 09:30; Status DC Levothyroxine Sodium (Synthroid) 25 mcg DAILY@06 PO Last administered on 08/22/18at 05:49; Start 08/17/18 at 06:00 Lorazepam (Ativan) 1 mg STAT STAT IV Last administered on 08/13/18 10:03; Start 08/13/18 at 09:58; Stop 08/13/18 at 09:59; Status DC Lorazepam (Ativan) 2 mg Q6HP PRN PO ANXIETY/AGITATION Last administered on 08/21/18at 20:31; Start 08/15/18 at 12:15 Magnesium Hydroxide (Milk Of Magnesia) 30 ml DAILYPRN PRN PO CONSTIPATION; Start 08/14/18 at 11:15 Miscellaneous (Unresolved Clarification Entry) SEE LABEL COMMENTS DAILY XX ; Start 08/21/18 at 09:00 Morphine Sulfate (Morphine Sulfate Inj) 2 mg Q30M PRN IV MODERATE PAIN (PS 5-7) Last administered on 08/13/18 09:25; Start 08/13/18 at 09:30; Stop 08/19/18 at 09:30; Status DC Nicotine (Nicoderm Cq 21mg) 1 patch DAILYPRN PRN TD NICOTINE WITHDRAWAL Last administered on 08/21/18 19:05; Start 08/16/18 at 13:45 Nitroglycerin (Nitrostat (1/ 150)) 0.4 mg Q5MP PRN SL CHEST PAIN; Start 08/13/18 at 09:15; Stop 08/19/18 at 09:31; Status DC Olanzapine (ZyPREXA) 5 mg Q6HP PRN PO ANXIETY/AGITATION; Start 08/14/18 at 11:30 Paliperidone (Invega) 3 mg QAM PO Last administered on 08/22/18 09:05; Start 08/21/18 at 09:00 Paliperidone (Invega) 3 mg QAM PO Last administered on 08/19/18 08:59; Start 08/15/18 at 09:00; Stop 08/20/18 at 09:04; Status DC Paliperidone (Invega) 3 mg QHS PO Last administered on 08/21/18 20:31; Start 08/21/18 at 21:00 Paliperidone (Invega) 3 mg QHS PO Last administered on 08/19/18 20:34; Start 08/15/18 at 21:00; Stop 08/20/18 at 09:04; Status DC Paliperidone (Invega) 6 mg BID PO Last administered on 08/20/18 09:15; Start 08/20/18 at 09:00; Stop 08/21/18 at 09:52; Status DC Trazodone HCl (Desyrel) 50 mg QHSP PRN PO INSOMNIA Last administered on 08/19/18 20:35; Start 08/14/18 at 11:15 Allergies Coded Allergies: Penicillins (Unverified Allergy, Severe, ANAPHYLACTIC REACTION, 02/23/14) Sulfa Antibiotics (Unverified Adverse Reaction, Intermediate, TINNITUS, 02/23/14) Codeine (Unverified Adverse Reaction, Unknown, VOMIT, 04/11/16) SHERMAN YU DO Aug 22, 2018 9:39 am
[2018-08-22] MEDS: OLANZapine 5 MG TAB PO PRN (12:56)
[2018-08-22] MEDS: NICOTINE 21MG/24HR 1 EA TRANSDERMAL TD PRN (15:29)
[2018-08-22 18:00] VITALS: BP 106/74
[2018-08-22] MEDS: LORazepam 2 MG TAB PO PRN (19:59)
[2018-08-23] MEDS: CEPACOL LOZENGE PO PRN ×2 (03:44→15:53)
[2018-08-23] MEDS: ACETAMINOPHEN TAB 650MG DOSE (2X325MG) PO PRN (03:44)
[2018-08-23] MEDS: LEVOTHYROXINE 25MCG TABLET (0.025MG) PO SCH (06:15)
[2018-08-23 06:45] VITALS: BP 106/67
--- NOTE | 2018-08-23 09:07 | MHIPNPDOC ---
[facility] Progress Note Progress Note DATE OF SERVICE: 08/23/18 HISTORY: Patient is a 58 -year-old , female, with no known psych history who presented to ED with complaint of chest pain. Pt during evaluation for CP very paranoid and abrasive to staff stating she was part of a "federal sting" and that she "works for [employer] When staff attempting to take pt's vitals pt screamed at nurse and stated she was trying to kill her. She also stated 'HIPAA violation b/c the doctors can see them." Per ED when pt was in room alone with door cracked was talking back and forth to self changing voices for different people in full conversation. Attempted to see pt this am who demanding the her chief nursing officer be present as a "witness." Pt then stated that no one's doing anything right here and that we're treating her poorly from her experience in the ED to here on [facility] and that she's going to [place] every one including myself and take our medical license b/c her family is full of rn cardiovascular icu with a lot of "legal pull in this town." Pt stating that she's smarter than everyone here b/c she has a 2yr degree from a [employer] college for biochemistry and that she knows everyone at [place]. She is making multiple legal threats and is unable to participate in interview due to psychosis and grandiose, paranoid delusions. Her insight and judgement are extremely poor. Pt is a poor historian to history gathered from ED reports VITAL SIGNS: See below. NEW TEST RESULTS: depakote level 62.6 low therapeutic CURRENT MEDICATIONS: See below. MENTAL STATUS EXAMINATION: General Appearance: clean, appears stated age, hospital scrubs/clothing Build: overweight Demeanor: more calm and cooperative, less preoccupied by grandiose delusions, no longer guarded Eye Contact: average Activity: more calm and cooperative Behavior: cooperative, pleasant Speech: reg rate/rhythm, normal volume Mood: no longer anxious and hostile. She is less manic Mood "I'm ok." Affect: appropriate, less disorganized. no longer labile, less anxious, no longer hostile Thought Process: improving associative, flight of ideas, derailment. improved racing. she is no longer tangential Thought Content (Delusions): improving bizarre, delusions. less paranoid, grandiose thoughts at baseline per history Thought Content (Other): improving preoccupation, obsessional, ideas of reference, denies internal-stimuli, appears less paranoid Thought Content (Aggressive): none reported Perception (Hallucinations): denies auditory (no longer talking to self back and forth changing voices for different people in full conversation) Perception (Other): none reported Cognition (Impairment of): improving memory, attention/concentration, ability to abstract Cognition(Intelligence Est.): average Oriented: Awake, Alert, Oriented times three Insight: limited Judgment: fair Psychosis: improving Associations, Abstract Thinking, Psychotic Perceptions DIAGNOSES: bipolar 1 d/o mre rosa with psychosis (per [facility] records) ASSESSMENT:Seen pt in office today stating she doing well. States she's tolerating invega sustenna well and feels it's beneficial. Went to yoga this am which she enjoyed. 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 She is much more pleasant and polite no longer threatening to [place] everyone on the unit. She continues to have grandiose delusions although less and no insight into them, most likely baseline as stated above as nursing staff know pt from [facility] and state she's always had them. She continues have increased goal direction although less bizarre. She is no longer hostile. She has improving psychosis, paranoia, and delusions. She is much more calm after receiving the nicotine patch she asked for. She is compliant on her medication and will monitor for improvement in symptoms. MANAGEMENT PLAN: continue current plan. Per [facility] records pt has one daughter and a son 15yrs ago. Has found prozac, effexor, and klonopin beneficial in the past for depression. Depakote beneficial for bipolar d/o. Increase invega 6mg bid as appears beneficial. Depakote level. Medications: invega sustenna 234mg im today invega sustenna 156mg im Monday depakote er 500mg bid invega 3mg bid ativan 2mg q6hr prn anxiety/agitation zyprexa zydis 5mg q6hr prn anxiety/agitation. TIME SPENT: 30 minutes. Vital Signs Vital Signs Date Time Temp Pulse Resp B/P (MAP) Pulse Ox O2 Delivery O2 Flow Rate FiO2 08/23/18 06:45 97.3 97 14 106/67 (80) Current Medications Current Medications Acetaminophen (Tylenol Tab) 650 mg Q6HP PRN PO HEADACHE or DISCOMFORT Last administered on 08/23/18 03:44; Start 08/14/18 at 11:15 Al Hydrox/Mg Hydrox/Simethicone (Mylanta) 30 ml Q4HP PRN PO HEARTBURN/INDIGESTION; Start 08/14/18 at 11:15 Cetylpyridinium Chloride (Cepacol) 1 rosa maria Q4HP PRN PO COUGH Last administered on 08/23/18at 03:44; Start 08/17/18 at 21:00 Divalproex Sodium (Depakote Er) 500 mg BID PO Last administered on 08/22/18at 19:59; Start 08/15/18 at 09:00 Home Med (Med Rec Complete!) ASDIRECTED XX ; Start 08/14/18 at 09:30; Stop 08/14/18 at 09:30; Status DC Levothyroxine Sodium (Synthroid) 25 mcg DAILY@06 PO Last administered on 08/23/18at 06:15; Start 08/17/18 at 06:00 Lorazepam (Ativan) 1 mg STAT STAT IV Last administered on 08/13/18at 10:03; Start 08/13/18 at 09:58; Stop 08/13/18 at 09:59; Status DC Lorazepam (Ativan) 2 mg Q6HP PRN PO ANXIETY/AGITATION Last administered on 08/22/18at 19:59; Start 08/15/18 at 12:15 Magnesium Hydroxide (Milk Of Magnesia) 30 ml DAILYPRN PRN PO CONSTIPATION; Start 08/14/18 at 11:15 Miscellaneous (Unresolved Clarification Entry) SEE LABEL COMMENTS DAILY XX ; Start 08/21/18 at 09:00; Stop 08/22/18 at 09:59; Status DC Miscellaneous (Unresolved Clarification Entry) SEE LABEL COMMENTS DAILY XX ; Start 08/22/18 at 09:00; Stop 08/22/18 at 10:38; Status DC Morphine Sulfate (Morphine Sulfate Inj) 2 mg Q30M PRN IV MODERATE PAIN (PS 5-7) Last administered on 08/13/18 09:25; Start 08/13/18 at 09:30; Stop 08/19/18 at 09:30; Status DC Nicotine (Nicoderm Cq 21mg) 1 patch DAILYPRN PRN TD NICOTINE WITHDRAWAL Last administered on 08/22/18 15:29; Start 08/16/18 at 13:45 Nitroglycerin (Nitrostat (1/ 150)) 0.4 mg Q5MP PRN SL CHEST PAIN; Start 08/13/18 at 09:15; Stop 08/19/18 at 09:31; Status DC Olanzapine (ZyPREXA) 5 mg Q6HP PRN PO ANXIETY/AGITATION Last administered on 08/22/18 12:56; Start 08/14/18 at 11:30 Paliperidone (Invega) 3 mg QAM PO Last administered on 08/22/18 09:05; Start 08/21/18 at 09:00 Paliperidone (Invega) 3 mg QAM PO Last administered on 08/19/18 08:59; Start 08/15/18 at 09:00; Stop 08/20/18 at 09:04; Status DC Paliperidone (Invega) 3 mg QHS PO Last administered on 08/22/18 19:58; Start 08/21/18 at 21:00 Paliperidone (Invega) 3 mg QHS PO Last administered on 08/19/18 20:34; Start 08/15/18 at 21:00; Stop 08/20/18 at 09:04; Status DC Paliperidone (Invega) 6 mg BID PO Last administered on 08/20/18 09:15; Start 08/20/18 at 09:00; Stop 08/21/18 at 09:52; Status DC Trazodone HCl (Desyrel) 50 mg QHSP PRN PO INSOMNIA Last administered on 08/19/18 20:35; Start 08/14/18 at 11:15 Allergies Coded Allergies: Penicillins (Unverified Allergy, Severe, ANAPHYLACTIC REACTION, 02/23/14) Sulfa Antibiotics (Unverified Adverse Reaction, Intermediate, TINNITUS, 02/23/14) Codeine (Unverified Adverse Reaction, Unknown, VOMIT, 04/11/16) SHERMAN YU DO Aug 23, 2018 9:07 am
[2018-08-23] MEDS: PALIPERIDONE 3 MG ER TAB (INVEGA) PO SCH ×2 (09:24→20:54)
[2018-08-23] MEDS: DIVALPROEX 500MG *ER* TAB PO SCH ×2 (09:24→20:54)
[2018-08-23] MEDS: OLANZapine 5 MG TAB PO PRN (14:16)
[2018-08-23] MEDS: NICOTINE 21MG/24HR 1 EA TRANSDERMAL TD PRN (15:53)
[2018-08-23 18:00] VITALS: BP 136/79
[2018-08-23] MEDS: traZODone 50 MG TAB PO PRN (20:54)
[2018-08-23] MEDS: LORazepam 2 MG TAB PO PRN (20:54)
[2018-08-24] MEDS: ACETAMINOPHEN TAB 650MG DOSE (2X325MG) PO PRN (05:14)
[2018-08-24] MEDS: LEVOTHYROXINE 25MCG TABLET (0.025MG) PO SCH (05:26)
[2018-08-24 06:15] VITALS: BP 121/76
[2018-08-24] MEDS: PALIPERIDONE 3 MG ER TAB (INVEGA) PO SCH (08:29)
[2018-08-24] MEDS: DIVALPROEX 500MG *ER* TAB PO SCH (08:30)
[2018-08-24] MEDS ORDERED: INVE234I IM (08:43)
[2018-08-24] MEDS ORDERED: DEPA500T2 PO (08:43)
[2018-08-24] MEDS ORDERED: TRAZO50TA PO (08:43)
[2018-08-24] MEDS ORDERED: LEVO25TA5 PO (08:43)
--- NOTE | 2018-08-24 08:55 | MHDSPDOC ---
[facility] Discharge Summary Discharge Summary DATE OF ADMISSION: Aug 14, 2018 at 11:12 am DATE OF DISCHARGE: Aug 24, 2018 DISCHARGE DIAGNOSES: bipolar 1 d/o mre rosa with psychosis REASON FOR ADMISSION: Patient is a 58 -year-old , female, with no known psych history who presented to ED with complaint of chest pain. Pt during evaluation for CP very paranoid and abrasive to staff stating she was part of a "federal sting" and that she "works for [employer]." When staff attempting to take pt's vitals pt screamed at nurse and stated she was trying to kill her. She also stated 'HIPAA violation b/c the doctors can see them." Per ED when pt was in room alone with door cracked was talking back and forth to self changing voices for different people in full conversation. 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 She is making multiple legal threats and is unable to participate in interview due to psychosis and grandiose, paranoid delusions. Her insight and judgement are extremely poor. Pt is a poor historian to history gathered from ED reports CONSULTANTS INVOLVED: none TREATMENT AND PROGRESS ON THE UNIT : Pt was admitted to [facility], seen for psychiatric assessment and started on invega 3mg bid that she tolerated well and was given invega sustenna 234mg im followed by invega sustenna 156mg im 3 days later both of which she tolerated well and found beneficial. She was started on depakote er 500mg bid for mood stabilization that she tolerated well, found beneficial, was no longerr manic, and her depakote level was 62.6 prior d/c. She was provided zyprexa zydis 5mg q6hr prn anxiety/agitation, ativan 2mg q6hr prn anxiety/agitation, and trazodone 50mg qhs prn insomnia. 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 Pt found her medications beneficial and tolerated them well. She attended groups daily during her stay. Her symptoms improved with treatment. On day of discharge she denied depression, anxiety, insomnia, SI/HI, hallucinations. She had baseline grandiose delusions (most likely not amendable with medication) although less and paranoia that she had insight intoupon d/c. She was discharged home after with follow-up at [facility]. She felt safe for discharge DISCHARGE ASSESSMENT: Seen pt in office today stating she doing good and is looking forward to going home today. She is pleasant and cooperative. States she's tolerating invega sustenna well and feels it's beneficial. She has baseline grandiose delusions (most likely not amendable with medication) although less and paranoia that she has insight into. She has great improvemen t in psychosis and denies AVH. She is tolerating her medications well and finding them beneficial. Her depakote level is 62.6 and her mood is stable. She is sleep thru the night. She denies depression, rosa, anxiety, insomnia, SI/HI, hallucinations. She feels safe to be discharged home. MENTAL STATUS EXAMINATION ON DISCHARGE: General Appearance: clean, appears stated age, hospital scrubs/clothing Build: overweight Demeanor: calm and cooperative, pleasant Eye Contact: average Activity: calm and cooperative Behavior: cooperative, pleasant Speech: reg rate/rhythm, normal volume Mood: euthymic, full range Mood "good." Affect: appropriate, euthymic, full range Thought Process: linear/logical, baseline grandiose delusions Thought Content (Delusions): denies hallucinations, baseline grandiose delusions and paranoia Thought Content (Other): denies SI/HI Thought Content (Aggressive): none reported Perception (Hallucinations): denies Perception (Other): none reported Cognition (Impairment of): good Cognition(Intelligence Est.): average Oriented: Awake, Alert, Oriented times three Insight: limited into baseline grandiose delusions Judgment: good Psychosis: denies MEDICATIONS ON DISCHARGE: invega sustenna 234mg im qmonthly depakote er 500mg bid invega 3mg bid PLAN/FOLLOWUP ARRANGEMENTS: d/c home with follow-up at [facility]. The amount of time spent in the coordination of care for this patient was approximately 30 minutes. Vital Signs/I&Os Vital Signs Date Time Temp Pulse Resp B/P (MAP) Pulse Ox O2 Delivery O2 Flow Rate FiO2 08/24/18 06:15 97.6 88 20 121/76 (91) Medications Scheduled Divalproex Sodium (Depakote ER) 500 Mg Tab, 500 MG PO BID for mood, #20 Levothyroxine Sodium (Synthroid) 25 Mcg Tab, 25 MCG PO DAILY@06 for thyroid, #10 Paliperidone Palmitate (Invega Sustenna) 234 Mg/1.5 Ml Inj, 234 MG IM QMONTH for psychosis, #1 Scheduled PRN Naproxen Sodium (Aleve) 220 Mg Tab, 220 MG PO BID PRN for PAIN, (Reported) Trazodone HCl (Trazodone HCl) 50 Mg Tab, 50 MG PO QHSP PRN for INSOMNIA, #10 Allergies Coded Allergies: Penicillins (Unverified Allergy, Severe, ANAPHYLACTIC REACTION, 02/23/14) Sulfa Antibiotics (Unverified Adverse Reaction, Intermediate, TINNITUS, 02/23/14) Codeine (Unverified Adverse Reaction, Unknown, VOMIT, 04/11/16) SHERMAN YU DO Aug 24, 2018 8:55 am
[2018-08-24] MEDS ORDERED: PALIPERIDONE PALMITATE 156 MG/1ML INJ(INVEGA SUSTENNA)(J2426) IM ONE (10:00)
== END 2018-08-24 11:20 | disposition home or self-care (01) | DRG 885 ==
LOC: M ED 08:56 → M ED INP 08-14 11:12 → M PSY 08-14 11:57
PROVIDERS: ADMIT Psychiatry & Neurology Psychiatry; ATTEND Psychiatry & Neurology Psychiatry
DX: F31.2 Bipolar disorder, current episode manic severe with psychotic features (principal); E87.1 Hypo-osmolality and hyponatremia; M79.7 Fibromyalgia; F17.200 Nicotine dependence, unspecified, uncomplicated; E87.6 Hypokalemia; R74.0 Nonspecific elevation of levels of transaminase and lactic acid dehydrogenase [LDH]; E03.9 Hypothyroidism, unspecified; Z88.2 Allergy status to sulfonamides; Z88.0 Allergy status to penicillin; Z88.5 Allergy status to narcotic agent

== ENCOUNTER 2018-12-04 11:16 | Emergency (ER) | payer MEDICARE ==
[~2018-12-04] VITALS: Ht 165.1 cm; Wt 71.4 kg
[~2018-12-04 11:16] MED LIST changes: +ALEV220T26 PO; +INVE234I IM; +LEVO25TA5 PO; +TRAZO50TA PO
[2018-12-04 11:45] LABS: HEMATOCRIT 37.1 % (36.0-47.0); HEMOGLOBIN 13.2 g/dl (12.0-15.5); MEAN CORPUSCULAR HEMOGLOBIN 33.2 pg (27.0-33.0); MEAN CORPUSCULAR HGB CONC 35.6 g/dl (32.0-36.5); MEAN CORPUSCULAR VOLUME 93.2 fl (80.0-96.0); PLATELET COUNT, AUTOMATED 419 10^3/uL (150-450); RED BLOOD COUNT 3.98 10^6/uL (4.00-5.40); WHITE BLOOD COUNT 13.5 10^3/uL (4.0-10.0)
[2018-12-04 12:08] LABS: AMPHETAMINES LEVEL URINE NEGATIVE (NEGATIVE); BARBITURATES URINE NEGATIVE (NEGATIVE); BENZODIAZEPINES URINE NEGATIVE (NEGATIVE); CANNABINOIDS URINE POSITIVE (NEGATIVE); COCAINE METABOLITE URINE NEGATIVE (NEGATIVE); METHADONE URINE NEGATIVE (NEGATIVE); OPIATES URINE NEGATIVE (NEGATIVE); PHENCYCLIDINE URINE NEGATIVE (NEGATIVE)
[2018-12-04 12:31] LABS: ACETAMINOPHEN LEVEL < 2.0 UG/ML (10.0-30.0); ALT/SGPT 35 U/L (12-78); BILIRUBIN,DIRECT 0.2 MG/DL (0.0-0.2); BILIRUBIN,TOTAL 0.6 MG/DL (0.2-1.0); BLOOD UREA NITROGEN 4 MG/DL (7-18); CARBON DIOXIDE LEVEL 26 MEQ/L (21-32); CHLORIDE LEVEL 88 MEQ/L (98-107); CREATININE FOR GFR 0.51 MG/DL (0.55-1.30); ETHYL ALCOHOL (ETHANOL) < 0.003 % (0.000-0.010); GLOMERULAR FILTRATION RATE > 60.0 (>51); GLUCOSE, FASTING 86 MG/DL (70-100); POTASSIUM SERUM 3.6 MEQ/L (3.5-5.1); SALICYLATE LEVEL 7.2 MG/DL (5.0-30.0); SODIUM LEVEL 127 MEQ/L (136-145); TOTAL PROTEIN 7.6 GM/DL (6.4-8.2)
[2018-12-04] MEDS ORDERED: PERP2TAB16 PO (12:39)
[2018-12-04] MEDS ORDERED: DEPA500T2 PO (12:39)
[2018-12-04] MEDS ORDERED: TRAZ-189 PO (12:39)
[2018-12-04] MEDS ORDERED: LORazepam 2 MG TAB PO STA (14:29)
[2018-12-04] MEDS ORDERED: DIVALPROEX 500MG *ER* TAB PO ONE (20:15)
[2018-12-04] MEDS ORDERED: traZODone 100 MG TAB PO ONE (20:15)
[2018-12-04] MEDS ORDERED: PERPHENAZINE 2 MG TAB PO ONE (20:15)
--- NOTE | 2018-12-04 21:16 | ECGEPIP ---
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
[2018-12-05] MEDS ORDERED: NS 1,000 ML IV ONE (01:45)
[2018-12-05] MEDS ORDERED: METAL LOCK LOOP XX ONE (03:46)
[2018-12-05 07:02] LABS: BLOOD UREA NITROGEN 4 MG/DL (7-18); CALCIUM LEVEL 8.1 MG/DL (8.5-10.1); CARBON DIOXIDE LEVEL 29 MEQ/L (21-32); CHLORIDE LEVEL 103 MEQ/L (98-107); CREATININE FOR GFR 0.56 MG/DL (0.55-1.30); GLOMERULAR FILTRATION RATE > 60.0 (>51); GLUCOSE, FASTING 99 MG/DL (70-100); POTASSIUM SERUM 3.5 MEQ/L (3.5-5.1); SODIUM LEVEL 140 MEQ/L (136-145)
[2018-12-05 08:05] VITALS: BP 137/61
== END 2018-12-05 08:44 | disposition short-term general hospital (02) ==
LOC: M ED 11:16
DX: R45.851 Suicidal ideations (principal); F31.9 Bipolar disorder, unspecified; M79.7 Fibromyalgia; Z79.899 Other long term (current) drug therapy; Z88.0 Allergy status to penicillin; Z88.1 Allergy status to other antibiotic agents; Z88.2 Allergy status to sulfonamides; Z88.5 Allergy status to narcotic agent; F17.210 Nicotine dependence, cigarettes, uncomplicated
CPT/HCPCS: 80048; 80076; 80307; 84443; 85027; 93005; 96360; 96361; 99284; G0480